=== PATIENT | female | born 1930 | race Caucasian/White ===

== ENCOUNTER 2016-06-09 10:37 | Outpatient (CLI) | payer OTHER, MEDICARE ==
--- NOTE | 2016-06-09 12:19 | DIAGNOSTIC IMAGING REPORT ---
PROCEDURE: DEXA BONE DENSITY STUDY CLINICAL INDICATION: POSTMENOPAUSAL COMPARISON: None. FINDINGS: LUMBAR SPINE: Bone mineral density 1.212 g/cm2, T score 1.5 normal LEFT HIP: Bone mineral density 0.847 g/cm2, T score -0.8 normal LEFT FEMORAL NECK: Bone mineral density 0.691 g/cm2, T score -1.4 osteopenia FRACTURE RISK CALCULATION ( when applicable): 10-year fracture risk of a major osteoporotic fracture 19% and of a hip fracture 4.4% (T score greater or equal to -1.0 to: NORMAL) (T score from -1.1 to -2.4: OSTEOPENIA) (T score ess than or equal to -2.5: OSTEOPOROSIS) IMPRESSION: 1. Osteopenia femoral neck with a major fracture risk of 19% and a hip fracture risk of 4.4%
== END 2016-06-09 23:00 ==
LOC: XR SRH 10:37
DX: Z78.0 Asymptomatic menopausal state (principal); M85.88 Other specified disorders of bone density and structure, other site

== ENCOUNTER 2016-07-22 14:42 | Day surgery (SDC) | payer OTHER, MEDICARE ==
[2016-07-22] MEDS ORDERED: ASPIRIN325 MG PO (15:30)
[2016-07-22] MEDS ORDERED: AMLODIPINE BESYL5 MG PO (15:30)
[2016-07-22] MEDS ORDERED: CARVEDILOL6.25 MG PO (15:31)
[2016-07-22] MEDS ORDERED: AZELASTINE HCL0.05 % (15:31)
[2016-07-22] MEDS ORDERED: COQ-10100 MG (15:32)
[2016-07-22] MEDS ORDERED: DIPHENHIST25 M1 PO (15:33)
[2016-07-22] MEDS ORDERED: FLUTICASONE PR50 MCG (15:33)
[2016-07-22] MEDS ORDERED: HYDREA500 MG PO (15:34)
[2016-07-22] MEDS ORDERED: GLUCOSAMINE CHONDRO (15:34)
[2016-07-22] MEDS ORDERED: MAG-OX 400400 MG PO (15:35)
[2016-07-22] MEDS ORDERED: ISOSORBIDE DINI10 MG PO (15:35)
[2016-07-22] MEDS ORDERED: NITROSTAT0.4 MG SL (15:36)
[2016-07-22] MEDS ORDERED: PANTOPRAZOLE SO40 MG PO (15:37)
[2016-07-22] MEDS ORDERED: OMEGA 31000 MG (15:37)
[2016-07-22] MEDS ORDERED: PRESERVISION AREDS (15:37)
[2016-07-22] MEDS ORDERED: VALSARTAN320 MG (15:38)
[2016-07-22] MEDS ORDERED: VITAMIN D-31000 UNIT PO (15:39)
[2016-07-22] MEDS ORDERED: HYCET1 ML PO (15:59)
--- NOTE | 2016-07-22 16:01 | Provider's Discharge Care Plan ---
Problem, Goal, Plan Problem List 1. S/P EVACUATION HEMATOMA LEFT UPPER EXTREM Goals: Improve disease control, Therapeutic intervention Instructions: Follow up as directed, Take meds as directed
[2016-07-22 17:25] VITALS: BP 167/66
[2016-07-22 17:35] VITALS: BP 153/67
[2016-07-22 17:48] VITALS: BP 170/59
--- NOTE | 2016-07-22 19:16 | OPERATIVE REPORT ---
DATE OF SURGERY: 07/22/2016 SURGEON: Jim Frankel III, MD [employer] TE[employer]ER: None. PREOPERATIVE DIAGNOSIS: 1. Hematoma, left distal dorsal forearm POSTOPERATIVE DIAGNOSIS: 1. Hematoma, left distal dorsal forearm PROCEDURE PERFORMED: 1. Incision and evacuation hematoma, left distal dorsal forearm ANESTHESIA: TIVA, local 1% Xylocaine with epinephrine, 0.5% Marcaine with epinephrine. COMPLICATIONS: No intraoperative or anesthetic complications. ESTIMATED BLOOD LOSS: None. FLUIDS: 300 mL Lactated Ringer's. PATHOLOGY SPECIMEN: Sent to laboratory, none. DRAINS: 1/4 inch flat Silastic drain. INDICATIONS: The patient is an 86-year-old female with approximately 3-week history of swelling, the dorsal aspect of her dorsal forearm. This decreased in size and has remained static for the last week. Aside from tenderness and some overlying erythema, she is asymptomatic, tender to palpation, scheduled for evacuation. SURGICAL FINDINGS: The patient was noted to have considerable amount of edema in the subcutaneous tissues, as well as small amount of organized hematoma. SURGICAL TECHNIQUE: The patient was brought to the operating room, placed in the dorsal supine position, where she underwent TIVA and monitored closely by anesthesia. Her left forearm and hand were prepped with Betadine and draped in a sterile fashion. The site previously identified in the preoperative holding area once again identified this site in the distal aspect of dorsum of her left forearm was infiltrated using local anesthetic. A small transverse incision made, carried down through skin, subcutaneous tissue into the hematoma cavity. Then using blunt dissection, we were able to free the hematoma from the surrounding subcutaneous tissue and underlying tendons using a hemostat. Then using gentle pressure, we were able to express the hematoma and apply pressure to the wound. The wound was then irrigated copiously with warm normal saline. A flat Silastic drain was placed in the wound, trimmed to length. The wound edges were approximated using vertical mattress 3-0 nylon. Sterile pressure occlusive dressing was placed over this site. The patient tolerated procedure well. The dressing was wrapped then with an Layo wrap loosely. The patient was then transferred to the recovery room in stable condition.
== END 2016-07-22 18:01 | disposition home or self-care (01) ==
LOC: OR SRH 14:42 → SCU SRH 14:50 → OR SRH 15:00
PROVIDERS: Specialist
PROC: 0J9H0ZZ Drainage of Left Lower Arm Subcutaneous Tissue and Fascia, Open Approach (ICD-10-PCS; principal; 2016-07-22 15:00)
DX: S50.12XA Contusion of left forearm, initial encounter (principal); W19.XXXA Unspecified fall, initial encounter; Z79.82 Long term (current) use of aspirin
CPT/HCPCS: 29229; 29240; 50004; 60001; 83291; 84044